=== PATIENT | male | born 1980 | race Caucasian/White ===

== ENCOUNTER 2019-04-12 14:53 | Inpatient (IN) | payer OTHER ==
[2019-04-12] MEDS: BUPIVACAINE 0.5%/EPI 1:200,000 50 ML (MDV) INJ (10:06)
[2019-04-12] MEDS: KETOROLAC 30 MG INJ IV (15:19)
[2019-04-12] MEDS: SOD CHLORIDE 0.9% 1,000 ML IV (15:19)
[2019-04-12 15:22] LABS: ADD MAN DIFF? NO
[2019-04-12 15:27] LABS: BASOPHILS % 0.2 % (0.0-2.0); EOSINOPHILS # 0.1 10^3/ul (0.0-0.5); EOSINOPHILS % 0.5 % (0.0-7.0); HEMATOCRIT 40.9 % (42.0-52.0); HEMOGLOBIN 13.9 g/dl (14.0-18.0); LYMPHOCYTES # 1.7 10^3/ul (0.8-2.9); MEAN CORPUSCULAR VOLUME 88.1 fl (82.0-101.0); MEAN PLATELET VOLUME 12.5 fl (7.4-10.4); MONOCYTE # 0.9 10^3/ul (0.3-0.9); MONOCYTES % 6.6 % (0.0-11.0); NEUTROPHIL # 10.3 10^3/ul (1.6-7.5); NEUTROPHILS % 79.3 % (39.0-77.0); PLATELET COUNT 148 10^3/UL (140-415); RED BLOOD COUNT 4.64 10^6/ul (4.70-6.10); RED CELL DISTRIBUTION WIDTH 12.6 % (11.5-14.5)
[2019-04-12 15:57] LABS: ADD UMIC NO; UR ASCORBIC ACID NEGATIVE (NEGATIVE); UR BILIRUBIN (Dip) NEGATIVE (NEGATIVE); UR BLOOD (Dip) NEGATIVE (NEGATIVE); UR CLARITY SLIGHTLY CLOUDY (CLEAR); UR COLOR YELLOW (YELLOW); UR GLUCOSE (Dip) NEGATIVE (NEGATIVE); UR KETONES (Dip) TRACE mg/dL (NEGATIVE); UR LEUKOCYTE ESTERASE (Dip) NEGATIVE Leu/ul (NEGATIVE); UR MUCUS MANY /HPF (NONE SEEN); UR NITRITE (Dip) NEGATIVE (NEGATIVE); UR RBC 1 /HPF (0-5); UR SPECIFIC GRAVITY (Dip) 1.028 (1.003-1.030); UR TOTAL PROTEIN (Dip) NEGATIVE (NEGATIVE); UR UROBILINOGEN (Dip) 1+ mg/dL (NEGATIVE); UR WBC 1 /HPF (0-5)
[2019-04-12 16:00] LABS: ALANINE AMINOTRANSFERASE 27 IU/L (13-69); ALBUMIN 4.3 g/dl (3.3-4.9); ALBUMIN/GLOBULIN RATIO 1.34; ALKALINE PHOSPHATASE 73 IU/L (42-121); ANION GAP 9 (5-13); ASPARTATE AMINO TRANSFERASE 25 IU/L (15-46); BILIRUBIN,INDIRECT 0.4 mg/dl (0-1.1); BILIRUBIN,TOTAL 0.4 mg/dl (0.2-1.3); BLOOD UREA NITROGEN 17 mg/dl (7-20); CALCIUM 9.2 mg/dl (8.4-10.2); CARBON DIOXIDE 25 mmol/L (21-31); CHLORIDE 104 mmol/L (97-110); CREATININE 0.79 mg/dl (0.61-1.24); Estimated GFR > 60 mL/min (>60); GLUCOSE 104 mg/dl (70-220); LIPASE 62 U/L (23-300); POTASSIUM 4.1 mmol/L (3.5-5.1); SODIUM 138 mmol/L (135-144); TOTAL PROTEIN 7.5 g/dl (6.1-8.1)
[2019-04-12] MEDS: AMPICILLIN/SULB 3 GM/NS (PMX) 100 ML IVPB (17:05)
[2019-04-12] MEDS ORDERED: ACETAMINOPHEN 325 MG TAB PO ×2 (17:30→23:00)
[2019-04-12] MEDS ORDERED: ONDANSETRON 4 MG INJ IV ×2 (17:30→23:00)
[2019-04-12] MEDS: ONDANSETRON 4 MG INJ IV ×2 (18:20→23:11)
[2019-04-12] MEDS: morphine 4 MG/ML VIAL IV (18:20)
[2019-04-12] MEDS ORDERED: morphine 2 MG INJ IV (19:30)
[2019-04-12] MEDS ORDERED: NACL 0.9% 3 ML SYG IV (19:30)
[2019-04-12] MEDS: DEXTROSE 5%-0.45% NACL 1,000 ML IV (20:41)
[2019-04-12] MEDS ORDERED: MIDAZOLAM 1 MG/ML 2 ML INJ (21:31)
[2019-04-12] MEDS ORDERED: ROCURONIUM 50 MG INJ (22:22)
[2019-04-12] MEDS ORDERED: LIDOCAINE 2% (SDV) 5 ML INJ (22:22)
[2019-04-12] MEDS ORDERED: GLYCOPYRROLATE 0.4 MG INJ (22:22)
[2019-04-12] MEDS ORDERED: NEOSTIGMINE 3 MG/3 ML SYRINGE (22:22)
[2019-04-12] MEDS ORDERED: PROPOFOL 20 ML (22:22)
[2019-04-12] MEDS ORDERED: ROPIVACAINE 0.5 % 30 ML VIAL (22:23)
[2019-04-12] MEDS ORDERED: ONDANSETRON 4 MG INJ (22:23)
[2019-04-12] MEDS ORDERED: DIPHENHYDRAMINE 25 MG CAP PO (23:00)
[2019-04-12] MEDS ORDERED: KETOROLAC 30 MG INJ IV (23:00)
[2019-04-12] MEDS ORDERED: METOCLOPRAMIDE 10 MG INJ IV (23:00)
[2019-04-12] MEDS ORDERED: HYDROmorphONE 1 MG/5 ML IV SYRINGE IV ×2 (23:00)
[2019-04-12] MEDS ORDERED: DIPHENHYDRAMINE 50 MG INJ IV ×2 (23:00)
[2019-04-12] MEDS: MEPERIDINE 25 MG INJ IV (23:11)
[2019-04-12] MEDS: FENTAnyl 50 MCG/ML VIAL IV (23:11)
[2019-04-12] MEDS: PIPER-TAZO 3.375 GM IV (PMX) 100 ML IVPB (23:14)
[2019-04-13] MEDS: D5W-0.45 NACL + KCL 20 MEQ 1,000 ML IV ×2 (00:27→10:08)
[2019-04-13] MEDS: HYDROmorphONE 0.5 MG/0.5 ML SYG IV ×3 (01:27→10:15)
[2019-04-13] MEDS: PIPER-TAZO 3.375 GM IV (PMX) 100 ML IVPB ×2 (06:04→13:57)
[2019-04-13 07:32] LABS: HEMOGLOBIN A1C 5.4 % (0-5.9)
[2019-04-13] MEDS: HYDROCODONE/APAP (5/325) TAB PO (14:00)
[2019-04-15] MEDS ORDERED: IBUPROFEN 600 MG TAB PO (23:00)
== END 2019-04-13 17:20 | disposition home or self-care (01) | DRG 343 ==
LOC: E/R 14:53 → PP2 17:19
PROC: 0DTJ4ZZ Resection of Appendix, Percutaneous Endoscopic Approach (ICD-10-PCS; principal; 2019-04-12 10:06)
DX: K35.80 Unspecified acute appendicitis (principal); E66.01 Morbid (severe) obesity due to excess calories; Z68.36 Body mass index [BMI] 36.0-36.9, adult
CPT/HCPCS: 36415; 74176; 80053; 81001; 81003; 83036; 83690; 85025; 87086; 88304; 96374; 96375; 99285-25